=== PATIENT | female | born 1955 | race Caucasian/White ===

== ENCOUNTER 2022-06-18 11:57 | Day surgery (SDC) | payer MEDICARE, BC ==
[2022-06-13 10:29] LABS: BASOPHILS % (AUTO) 0.7 % (0-1); EOSINOPHILS # (AUTO) 0.1 X10'3 (0-0.9); EOSINOPHILS % (AUTO) 2.6 % (0-6); HEMATOCRIT 37.1 % (35.0-45.0); HEMOGLOBIN 12.4 g/dl (12.0-16.0); LYMPHOCYTES # (AUTO) 1.9 X10'3 (1.1-4.8); LYMPHOCYTES % (AUTO) 38.9 % (21-51); MEAN CORPUSCULAR HEMOGLOBIN 29.9 PG (27.0-31.0); MEAN CORPUSCULAR HGB CONC 33.5 g/dL (33.0-36.5); MEAN CORPUSCULAR VOLUME 89.3 FL (78-98); MEAN PLATELET VOLUME 6.9 FL (7.4-10.4); MONOCYTES # (AUTO) 0.4 X10'3 (0-0.9); MONOCYTES % (AUTO) 7.4 % (2-12); NEUTROPHILS # (AUTO) 2.4 X10'3 (1.8-7.7); NEUTROPHILS % (AUTO) 50.4 % (42-75); PLATELET COUNT 208 X10'3 (140-440); RED BLOOD COUNT 4.15 X10'6 (4.20-5.60); RED CELL DISTRIBUTION WIDTH 13.6 % (11.5-14.5); WHITE BLOOD COUNT 4.8 X10'3 (4.5-11.0)
[2022-06-13 10:43] LABS: ALBUMIN 3.7 G/DL (3.4-5.0); ANION GAP 8 (8-16); BLOOD UREA NITROGEN 20 MG/DL (7-18); BUN/CREATININE RATIO 19.6 (6.6-38.0); CALCIUM 9.8 MG/DL (8.5-10.1); CHLORIDE 105 MMOL/L (99-107); CHOLESTEROL 133 MG/DL (0-200); CREATININE 1.02 MG/DL (0.40-0.90); GLUCOSE 106 MG/DL (70-104); HDL CHOLESTEROL 52 MG/DL (35-60); POTASSIUM 4.3 MMOL/L (3.5-5.1); SODIUM 143 MMOL/L (135-145); TOTAL CARBON DIOXIDE 30.3 MMOL/L (24-32); eGFR 54 ML/MIN
[2022-06-13 10:44] LABS: CHOL/HDL RATIO 2.6 (0.00-4.99); LDL CHOLESTEROL 62 MG/DL (50-100); TRIGLYCERIDES 98 MG/DL (20-135)
[2022-06-13 10:45] LABS: APTT 28 SECONDS (22-32)
[2022-06-18] VITALS (7 sets, daily range): BP systolic 113–137; BP diastolic 46–64
[~2022-06-18] VITALS: Ht 160 cm; Wt 87.7 kg
[~2022-06-18 11:57] MED LIST: ALEN70TA37 PO; AMLO1CAP10 PO; ASPI81TA53 PO; ATOR20TA66 PO; HYDR200T84 PO; LISI20TA28 PO; METF-438 PO; METO-395 PO
[2022-06-18] MEDS ORDERED: diphenhydrAMINE 25mg capsule PO PRN (12:15)
[2022-06-18] MEDS ORDERED: LORazepam 0.5 MG tablet PO PRN (12:15)
[2022-06-18] MEDS ORDERED: normal saline 1,000 ML IV SCH (12:15)
[2022-06-18] MEDS ORDERED: MULT-227 PO (12:23)
[2022-06-18] MEDS ORDERED: NITR0.4T51 SL (12:23)
[2022-06-18] MEDS ORDERED: calcium PO (12:23)
[2022-06-18] MEDS ORDERED: ASPI81TA52 PO (12:23)
[2022-06-18] MEDS ORDERED: METO-395 PO (12:23)
[2022-06-18] MEDS ORDERED: alendronate sodium PO (12:23)
[2022-06-18] MEDS ORDERED: ATOR40TA72 PO (12:23)
[2022-06-18] MEDS ORDERED: verapamil 2.5 mg/ml inj IV ONE (14:22)
[2022-06-18] MEDS ORDERED: nitroGLYCERIN-Tridil 50MG/D5W 250 ML IV ONE (14:22)
[2022-06-18] MEDS ORDERED: heparin 1,000unit/ml 10ml vial 10 ML ONE (14:23)
[2022-06-18] MEDS ORDERED: fentaNYL/PF 50MCG/1 ML 2ML syringe ONE (14:23)
[2022-06-18] MEDS ORDERED: midazolam 1 mg/ML 2ml injection ONE (14:23)
[2022-06-18] MEDS ORDERED: iohexol 350MG/ML 100ml bottle IV ONE (14:23)
[2022-06-18] MEDS ORDERED: LIDOcaine 1%/PF 5ML 10 MG/ML VIAL ONE (14:23)
== END 2022-06-18 17:10 | disposition home or self-care (01) ==
LOC: SSTAY O 11:57
PROVIDERS: ATTEND Student in an Organized Health Care Education/Training Program
DX: R94.39 Abnormal result of other cardiovascular function study (principal); I25.10 Atherosclerotic heart disease of native coronary artery without angina pectoris; E11.9 Type 2 diabetes mellitus without complications; I10 Essential (primary) hypertension; Z79.899 Other long term (current) drug therapy; Z98.890 Other specified postprocedural states; Z79.01 Long term (current) use of anticoagulants
CPT/HCPCS: 36415; 80048; 80061; 82948; 85025; 85610; 85730; 93005; 93458; 99152; C1769; C1894; J1644; J2250; J3010; J3490; J7030; Q0163; Q9967; A4620; A5120; A6258; A6402